=== PATIENT | female | born 1990 | race Caucasian/White ===

== ENCOUNTER 2021-01-13 13:01 | Outpatient (CLI) | payer OTHER, SELFPAY | END 2021-01-13 13:02 | disposition home or self-care (01) | LOC: ANHCOVIDVC 13:02 | PROVIDERS: PCP Internal Medicine | DX: Z23 Encounter for immunization (principal) | CPT/HCPCS: 0001A; 91300 ==

== ENCOUNTER 2021-02-03 13:01 | Outpatient (CLI) | payer OTHER, SELFPAY | END 2021-02-03 13:02 | disposition home or self-care (01) | LOC: ANHCOVIDVC 13:01 | PROVIDERS: PCP Internal Medicine | DX: Z23 Encounter for immunization (principal) | CPT/HCPCS: 0002A; 91300 ==

== ENCOUNTER 2022-05-28 10:39 | Outpatient (CLI) | payer BC, SELFPAY ==
--- NOTE | 2022-05-28 10:55 | ECG_ITS ---
Measurements Intervals [place] Rate: 51 P: 18 MN: 142 QRS: 42 QRSD: 90 T: 42 QT: 427 QTc: 396 Interpretive Statements SINUS BRADYCARDIA WITH SINUS ARRHYTHMIA BASELINE ARTIFACT- II, III, AVR, AVL, AVF BORDERLINE ECG Electronically Signed On 05-28-2022 11:10:22 CDT by hCad Bonilla D.O.
== END 2022-05-28 10:40 | disposition home or self-care (01) ==
LOC: ANHCARD 10:42
PROVIDERS: PCP Internal Medicine; Visit Provider Internal Medicine
DX: R07.89 Other chest pain (principal)
CPT/HCPCS: 93005